=== PATIENT | female | born 1985 | race Caucasian/White ===

== ENCOUNTER → 2017-01-13 | Outpatient (CLI) | payer OTHER ==
[~2017-01-13] MED LIST: ISOVUE-370 76% 100ML VIAL (Q9967) As Ordered ONE
--- NOTE | 2017-01-21 20:22 | REP ---
Clinical: Infertility. Technique: Real time fluoroscopic evaluation performed in conjunction with the [employer]. Findings: Hand Loom Weaver film of the pelvis is unremarkable. Contrast administration demonstrates normal contour to the uterus and normal bilateral fallopian tubes with appropriate, bilateral spillage of contrast into the pelvis. Total fluoroscopic time: 29 seconds. Impression: 1. Bilateral fallopian tubes appear normal and patent. 2. Normal contour to the uterus. Signed by Ming Bullard MD 01/21/2017 08:14 P
== END | disposition home or self-care (01) ==
LOC: M RADPRO 11:08
PROVIDERS: ATTEND Obstetrics & Gynecology
DX: N97.9 Female infertility, unspecified (principal)
CPT/HCPCS: 58340; 74740; Q9967

== ENCOUNTER 2018-05-02 12:21 | Emergency (ER) | payer OTHER ==
[2018-05-02] MEDS: LIDOCAINE 4% CREAM 5GM (LMX4) TOP (12:35)
== END 2018-05-02 13:13 | disposition home or self-care (01) ==
LOC: M ED 12:21
DX: S51.812A Laceration without foreign body of left forearm, initial encounter (principal); W22.8XXA Striking against or struck by other objects, initial encounter
CPT/HCPCS: 12002